=== PATIENT | male | born 1945 | race Caucasian/White ===

== ENCOUNTER 2022-02-23 11:04 | Emergency (ER) | payer MEDICARE | END 2022-02-23 12:12 | disposition home or self-care (01) | LOC: ERS 11:04 | DX: B34.9 Viral infection, unspecified (principal); E11.9 Type 2 diabetes mellitus without complications; E78.00 Pure hypercholesterolemia, unspecified; I10 Essential (primary) hypertension; Z79.84 Long term (current) use of oral hypoglycemic drugs; Z79.899 Other long term (current) drug therapy; Z20.822 Contact with and (suspected) exposure to COVID-19 | CPT/HCPCS: 71045; 87804 ×2; U0003; U0005 ==